=== PATIENT | female | born 1935 | race Caucasian/White ===

== ENCOUNTER 2023-10-01 10:05 | Emergency (ER) | payer MEDICARE ==
[2023-10-01] MEDS: HYDROmorphone 0.5 MG/0.5 ML Syringe IVPUSH ONE (11:25)
[2023-10-01] MEDS: Lidocaine/Epineph/Tetracaine 3 ML Syringe TOP ONE (11:26)
== END 2023-10-01 14:52 | disposition home or self-care (01) ==
LOC: JP.ED 10:05
DX: S02.2XXA Fracture of nasal bones, initial encounter for closed fracture (principal); S01.21XA Laceration without foreign body of nose, initial encounter; Z79.82 Long term (current) use of aspirin; Z79.899 Other long term (current) drug therapy; Z79.891 Long term (current) use of opiate analgesic; W19.XXXA Unspecified fall, initial encounter; Y92.009 Unspecified place in unspecified non-institutional (private) residence as the place of occurrence of the external cause
CPT/HCPCS: 12013; 70450; 70486; 72125; 76377; 96374; 99284; A9270; J1170